=== PATIENT | female | born 1950 | race Caucasian/White ===

== ENCOUNTER 2017-03-03 15:35 | Emergency (ER) | payer SELFPAY ==
[2017-03-03 15:44] VITALS: TEMP 98.1; O2SAT 98
--- NOTE | 2017-03-03 16:00 | C.PDOC ---
History Of Present Illness 66 y/o female presents with cat bite to right foot, occurred yesterday at 7 pm. pt accidentally stepped on cat. owned by nephew, and it bit her right foot. pt started on leftover antibiotics nephew had from a cat bite (augmentin) and here for a tetanus shot. per nephew, all of cat's immunizations are utd. Time Seen by Provider: 03/03/17 15:48 Chief Complaint (Nursing): Bite History Per: Patient History/Exam Limitations: no limitations Onset/Duration Of Symptoms: Days (1) Location Of Injury: Right: Foot Quality Of Symptoms: Painful Severity: Mild - Animal Bite Description Of The Animal: Family Pet Reports Animal Appears: Well Reports Animal's Immunization Status: UTD Animal Control Notified: No Past Medical History Reviewed: Historical Data, Nursing Documentation, Vital Signs Vital Signs: Last Vital Signs Temp 98.1 F 03/03/17 15:43 Pulse 71 03/03/17 16:19 Resp 18 03/03/17 16:19 BP 145/75 03/03/17 16:19 Pulse Ox 98 03/03/17 16:46 Surgical History: No Surg Hx Family History: States: Unknown Family Hx - Social History Hx Tobacco Use: No Hx Alcohol Use: No Hx Substance Use: No - Immunization History Hx Tetanus Toxoid Vaccination: No Hx Influenza Vaccination: No Hx Pneumococcal Vaccination: No Review Of Systems Constitutional: Negative for: Fever, Chills Musculoskeletal: Positive for: Other (fpoot) Skin: Negative for: Rash, Bruising Neurological: Negative for: Weakness, Numbness Physical Exam - Physical Exam Appears: Non-toxic, No Acute Distress Skin: Warm, Dry, Other (2 mm healing bite, scab, to fdorsum right foot. no swelling. erythemna. or warmth. from of foot, toes, ankle, sensation and motor intact. ) ED Course And Treatment O2 Sat by Pulse Oximetry: 98 Disposition Counseled Patient/Family Regarding: Studies Performed, Diagnosis, Need For Followup, Rx Given - Disposition Referrals: Leonel Gardner [Staff Provider] - Disposition: HOME/ ROUTINE Disposition Time: 16:01 Condition: STABLE Additional Instructions: Take antibiotics as prescribed. Naproxen for pain. Follow up with Dr Gardner in a few days. Prescriptions: Amoxicillin/Clavulanate [Augmentin 875 MG-125 MG] 1 tab PO BID #14 tab Instructions: Animal Bite (ED) Forms: General Discharge Instructions - Clinical Impression Clinical Impression: Cat bite of right foot, Requires a booster tetanus
[2017-03-03 16:24] VITALS: BP 145/75; PULSE 71; RESP 18
== END 2017-03-03 16:28 | disposition home or self-care (01) ==
LOC: C.ER 15:35
DX: S91.351A Open bite, right foot, initial encounter (principal); W55.01XA Bitten by cat, initial encounter